=== PATIENT | male | born 1980 | race Caucasian/White ===

== ENCOUNTER → 2023-07-01 10:20 | Outpatient (BNVA) | payer BC, SELFPAY | PROVIDERS: Visit Provider Family Medicine Adult Medicine | DX: M25.50 Pain in unspecified joint (principal); R21 Rash and other nonspecific skin eruption; Z91.89 Other specified personal risk factors, not elsewhere classified; Z78.9 Other specified health status | CPT/HCPCS: 80053; 80061; 84443; 84550; 85025; 85651; 86038; 86140; 86592 ==